=== PATIENT | male | born 1960 | race Caucasian/White ===

== ENCOUNTER → 2020-02-13 | Outpatient (CLI) | payer OTHER ==
--- NOTE | 2020-02-13 14:58 | US ---
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 SIDE PERFORMED: bilateral 1) Color flow is present and patency is documented in the following vessels. No DVT or SVT is noted . EIV- not seen Common Femoral Vein-not seen on left Deep Femoral Vein-not seen on left Femoral Vein Popliteal Vein Proximal Calf Veins Greater Saph Vein-unable to visualize Upper Small Saph Vein -not seen on right 2) There is no venous reflux seen bilateral, limited views. Morbidly obese patient unable to well recline, large panus, unable to see vessels in groin. IMPRESSION: Suboptimal study particularly left lower extremity without ultrasound evidence for acute DVT on images saved. Some vessels not adequately assessed on this study as detailed above.
--- NOTE | 2020-02-14 12:25 | P.ARTDOP ---
Arterial Doppler LOWER EXTREMITY ARTERIAL DOPPLER: DATE OF SERVICE: 02/13/2020 Reason for study: Ulcer right great toe. Doppler waveforms: Multiphasic bilaterally throughout. Pulse volume recording: []. Pressure gradients: None. Ankle-brachial indices: Greater than 1 bilaterally. Toe brachial indices: 0.71 on the right, 0.83 on the left Impression: normal study.
== END | disposition home or self-care (01) ==
LOC: RADUSWWP 13:25
PROVIDERS: ATTEND Thoracic Surgery (Cardiothoracic Vascular Surgery)
DX: L89.892 Pressure ulcer of other site, stage 2 (principal); E11.621 Type 2 diabetes mellitus with foot ulcer
CPT/HCPCS: 93922; 93923; 93970

== ENCOUNTER 2021-12-30 10:54 | Emergency (ER) | payer OTHER ==
[2021-12-30 11:00] LABS: Glucose,Whole Blood 174 mg/dL (70-110)
[2021-12-30 11:24] LABS: Basophils # (A) 0.1 k/uL (0-0.2); Basophils % (A) 1 %; Eosinophils # (A) 0.4 k/uL (0-0.7); Eosinophils % (A) 5 %; HCT 46.4 % (39.0-53.0); HGB 15.6 gm/dL (13.0-17.5); Lymphocytes # (A) 2.2 k/uL (1.0-4.8); Lymphocytes % (A) 23 %; MCH 31.1 pg (25.0-35.0); MCHC 33.6 g/dL (31.0-37.0); MCV 92.5 fL (80.0-100.0); Mean Platelet Volume 8.2; Monocytes # (A) 0.4 k/uL (0-1.0); Monocytes % (A) 4 %; Neutrophils # (A) 5.9 k/uL (1.3-7.7); Neutrophils % (A) 63 %; Platelet Count 281 k/uL (150-450); RBC 5.02 m/uL (4.30-5.90); RDW 12.9 % (11.5-15.5); WBC 9.3 k/uL (3.8-10.6)
[2021-12-30 11:25] VITALS: RESP 18
[2021-12-30 11:40] LABS: ALT 14 U/L (4-49); AST 18 U/L (17-59); African American GFR (CKD) >90 (>60 ml/min/1.73 sqM); Albumin 4.4 g/dL (3.5-5.0); Alkaline Phosphatase 71 U/L (38-126); Anion Gap 8 mmol/L; Blood Urea Nitrogen 16 mg/dL (9-20); Calcium 9.4 mg/dL (8.4-10.2); Carbon Dioxide 28 mmol/L (22-30); Chloride 101 mmol/L (98-107); Glucose 167 mg/dL (74-99); Magnesium 1.4 mg/dL (1.6-2.3); Non-African American GFR(CKD) >90 (>60 ml/min/1.73 sqM); Sodium 137 mmol/L (137-145); Total Bilirubin 0.7 mg/dL (0.2-1.3); Total Protein 7.5 g/dL (6.3-8.2)
--- NOTE | 2021-12-30 11:44 | CT ---
EXAMINATION TYPE: CT brain wo con for TPA CT DLP: 1227.8 mGycm, Automated exposure control for dose reduction was used. DATE OF EXAM: 12/30/2021 11:36 AM COMPARISON: None. CLINICAL INDICATION:Male, 61 years old with history of Neuro deficit, acute, stroke suspected, CODE S TROKE TECHNIQUE: Brain: Multiple axial CT images of the brain were obtained without IV contrast. Coronal and sagittal reformats were reviewed. FINDINGS: Brain: Extra-axial spaces: No abnormal extra-axial fluid collections. Ventricular system: Within normal limits Cerebral parenchyma: No acute intraparenchymal hemorrhage or mass effect. The sifuentes-white junction is well differentiated. Remote right insula infarct. Cerebellum: Unremarkable. Mass effect: No evidence of midline shift. Intracranial vasculature: Atherosclerotic calcifications of the intracranial vessels. Soft tissues: Normal. Calvarium/osseous structures: No depressed skull fracture. Paranasal sinuses and mastoid air cells: Clear Visualized orbits: Orbital contents are intact. IMPRESSION: No acute intracranial process. Remote right insular infarct.
[2021-12-30 11:54] LABS: INR 0.9 (<1.2); Partial Thromboplastin Time 25.6 sec (22.0-30.0); Prothrombin Time 10.4 sec (9.0-12.0)
--- NOTE | 2021-12-30 12:07 | XR ---
EXAMINATION TYPE: XR chest 2V DATE OF EXAM: 12/30/2021 COMPARISON: 07/09/2015 TECHNIQUE: PA and lateral views submitted. HISTORY: Altered mental status FINDINGS: The lungs are clear and there is no pneumothorax, pleural effusion, or focal pneumonia. Arthropathy of the shoulders. Hypertrophic and degenerative changes spine. Atherosclerotic change aorta. Heart s ize normal. No overt failure. IMPRESSION: 1. No acute process.
--- NOTE | 2021-12-30 12:19 | CT ---
EXAMINATION TYPE: CT angio head neck CT DLP: 937.3 mGycm, Automated exposure control for dose reduction was used. DATE OF EXAM: 12/30/2021 12:01 PM COMPARISON: CT head of the same date. CLINICAL INDICATION:Male, 61 years old with history of Neuro deficit, acute, stroke suspected; CODE S TROKE TECHNIQUE: Axially acquired helical CT angiogram of the head and neck was obtained with contrast util izing 65 cc of Isovue-370 administered intravenously. Axial images are supplemented with 3D reconstru ctions which were post-processed at an independent workstation. NASCET criteria used. FINDINGS: CTA HEAD: No evidence of acute intracranial hemorrhage, mass effect, or midline shift. The ventricles, sulci, a nd cisterns are unremarkable. The visualized portions of the internal carotid arteries, middle cerebral arteries, anterior cerebral arteries, and posterior cerebral arteries are patent. The basilar and vertebral arteries are patent. CTA NECK: Right Carotid System: The common carotid artery and external carotid artery are patent. The carotid bifurcation demonstrate s no evidence of hemodynamically significant stenosis. The remaining portions of the internal carotid artery demonstrate normal size without significant narrowing. Left Carotid System: The common carotid artery and external carotid artery are patent. Minimal calcified plaque at the car otid bulb. The carotid bifurcation demonstrates no evidence of hemodynamically significant stenosis. The remaining portions of the internal carotid artery demonstrate normal size without significant toño rowing. Vertebral arteries are patent without evidence hemodynamically significant stenosis. Calcification at the origin of the right vertebral artery. The vertebral arteries are codominant. There is a three-vessel aortic arch. The origins of the great vessels are patent. No evidence of hemo dynamically significant stenosis. IMPRESSION: 1. No evidence of dissection of the cervical internal carotid arteries or vertebral arteries or any e vidence of significant stenosis at the carotid bifurcations. 2. No evidence of high-grade stenosis or intracranial aneurysm.
[2021-12-30 14:26] VITALS: BP 137/92; PULSE 77; TEMP 94.4
--- NOTE | 2021-12-30 14:28 | ED ---
Neuro HPI - General Chief Complaint: Neuro Symptoms/Deficit Stated Complaint: stroke symptoms Time Seen by Provider: 12/30/21 10:54 Source: patient, EMS, RN notes reviewed Mode of arrival: EMS Limitations: no limitations - History of Present Illness Is the patient presenting with stroke symptoms?: Yes Initial Comments: 61-year-old male history of prior stroke with left-sided residual weakness who presents today by EMS with complaints of what appears to be a wake-up stroke. He last was noted to be well about 8 PM last evening. 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 He does have chronic left knee pain he does not believe his left leg was affected. No headache he did also complain however of anterior chest pain. He states currently he has diabetes been having recurrent pain over last 3 days. No fevers chills nausea vomiting sweats or other symptoms - Related Data Home Medications: Home Medications Medication Instructions Recorded Confirmed Aspirin 81 mg PO HS 12/30/21 12/30/21 Atorvastatin [Lipitor] 20 mg PO HS 12/30/21 12/30/21 Clopidogrel [Plavix] 75 mg PO DAILY 12/30/21 12/30/21 Diclofenac Sodium Gel [Voltaren 1 applic TRANSDERM QID 12/30/21 12/30/21 Gel] Insulin Glargine,Hum.rec.anlog 20 units SQ DAILY 12/30/21 12/30/21 [Lantus Solostar Pen] Ipratropium-Albuterol Nebulize 3 ml INHALATION RT-Q6H PRN 12/30/21 12/30/21 [Duoneb 0.5 mg-3 mg/3 ml Soln] amLODIPine [Norvasc] 5 mg PO HS 12/30/21 12/30/21 lisinopriL 40 mg PO DAILY 12/30/21 12/30/21 metFORMIN HCL 1,000 mg PO BID 12/30/21 12/30/21 Allergies/Adverse Reactions: Allergies Allergy/AdvReac Type Severity Reaction Status Date / Time No Known Allergies Allergy Verified 12/30/21 11:06 Review of Systems ROS Statement: Those systems with pertinent positive or pertinent negative responses have been documented in the HPI. ROS Other: All systems not noted in ROS Statement are negative. General Exam Limitations: no limitations Stroke MDM - Lab Data Result diagrams: 12/30/21 11:08 12/30/21 11:08 Lab Results 12/30/21 12/30/21 12/30/21 Range/Units 10:58 11:08 11:08 WBC 9.3 (3.8-10.6) k/uL RBC 5.02 (4.30-5.90) m/uL Hgb 15.6 (13.0-17.5) gm/dL Hct 46.4 (39.0-53.0) % MCV 92.5 (80.0-100.0) fL MCH 31.1 (25.0-35.0) pg MCHC 33.6 (31.0-37.0) g/dL RDW 12.9 (11.5-15.5) % Plt Count 281 (150-450) k/uL MPV 8.2 Neutrophils % 63 % Lymphocytes % 23 % Monocytes % 4 % Eosinophils % 5 % Basophils % 1 % Neutrophils # 5.9 (1.3-7.7) k/uL Lymphocytes # 2.2 (1.0-4.8) k/uL Monocytes # 0.4 (0-1.0) k/uL Eosinophils # 0.4 (0-0.7) k/uL Basophils # 0.1 (0-0.2) k/uL PT 10.4 (9.0-12.0) sec INR 0.9 (<1.2) APTT 25.6 (22.0-30.0) sec Sodium (137-145) mmol/L Potassium (3.5-5.1) mmol/L Chloride (98-107) mmol/L Carbon Dioxide (22-30) mmol/L Anion Gap mmol/L BUN (9-20) mg/dL Creatinine (0.66-1.25) mg/dL Est GFR (CKD-EPI)AfAm (>60 ml/min/1.73 sqM) Est GFR (CKD-EPI)NonAf (>60 ml/min/1.73 sqM) Glucose (74-99) mg/dL POC Glucose (mg/dL) 174 H (70-110) mg/dL POC Glu Fixed Assets Accountant ID Sofya Dietz Calcium (8.4-10.2) mg/dL Magnesium (1.6-2.3) mg/dL Total Bilirubin (0.2-1.3) mg/dL AST (17-59) U/L ALT (4-49) U/L Alkaline Phosphatase (38-126) U/L Troponin I (0.000-0.034) ng/mL Total Protein (6.3-8.2) g/dL Albumin (3.5-5.0) g/dL 12/30/21 12/30/21 Range/Units 11:08 11:08 WBC (3.8-10.6) k/uL RBC (4.30-5.90) m/uL Hgb (13.0-17.5) gm/dL Hct (39.0-53.0) % MCV (80.0-100.0) fL MCH (25.0-35.0) pg MCHC (31.0-37.0) g/dL RDW (11.5-15.5) % Plt Count (150-450) k/uL MPV Neutrophils % % Lymphocytes % % Monocytes % % Eosinophils % % Basophils % % Neutrophils # (1.3-7.7) k/uL Lymphocytes # (1.0-4.8) k/uL Monocytes # (0-1.0) k/uL Eosinophils # (0-0.7) k/uL Basophils # (0-0.2) k/uL PT (9.0-12.0) sec INR (<1.2) APTT (22.0-30.0) sec Sodium 137 (137-145) mmol/L Potassium 4.0 (3.5-5.1) mmol/L Chloride 101 (98-107) mmol/L Carbon Dioxide 28 (22-30) mmol/L Anion Gap 8 mmol/L BUN 16 (9-20) mg/dL Creatinine 0.86 (0.66-1.25) mg/dL Est GFR (CKD-EPI)AfAm >90 (>60 ml/min/1.73 sqM) Est GFR (CKD-EPI)NonAf >90 (>60 ml/min/1.73 sqM) Glucose 167 H (74-99) mg/dL POC Glucose (mg/dL) (70-110) mg/dL POC Glu Fixed Assets Accountant ID Calcium 9.4 (8.4-10.2) mg/dL Magnesium 1.4 L (1.6-2.3) mg/dL Total Bilirubin 0.7 (0.2-1.3) mg/dL AST 18 (17-59) U/L ALT 14 (4-49) U/L Alkaline Phosphatase 71 (38-126) U/L Troponin I <0.012 (0.000-0.034) ng/mL Total Protein 7.5 (6.3-8.2) g/dL Albumin 4.4 (3.5-5.0) g/dL - NIH Stroke Scale 1a. Level of Consciousness: (0) alert 1b. LOC Questions: (0) answers correctly 1c. LOC Commands: (0) performs tasks correctly 2. Best Gaze: (0) normal 3. Visual: (0) no visual loss 4. Facial Palsy: (1) minor paralysis 5a. Motor Arm Left: (0) no drift 5b. Motor Arm Right: (0) no drift 6a. Motor Leg Left: (0) no drift 6b. Motor Leg Right: (0) no drift 7. Limb Ataxia: (0) absent 8. Sensory: (0) normal 9. Best Language: (0) no aphasia 10. Dysarthria: (0) normal 11. Extinction/Inattention: (0) no abnormality - Medical Decision Making Patient was a code stroke at did discuss the case with Dr. petersen. Patient was to be a medical admission and management. CT was negative for acute processes.. Patient was to be admitted with neurological consultation. Patient had a long discussion he does not want to stay in hospital he did have a long discussion regarding the risks and benefits with respect to his chest pain and his evidence of TIA. Patient demonstrates decision making capacity that is adequate. He is willing to take the responsibility we did discuss return parameters. He will follow-up with his doctor he has seen Dr. Montoya also in the past - Radiology Data Radiology results: report reviewed, image reviewed - EKG Data -: EKG Interpreted by Me EKG shows normal: sinus rhythm (Sinus rhythm 82. Interval 172 QRS duration 125 daily since QTC 360/406 moderate interventricular conduction delay no acute ST-T wave changes seen) Past Medical History Past Medical History: CVA/TIA Past Surgical History: Unable to Obtain Smoking Status: Former smoker Past Alcohol Use History: None Reported Past Drug Use History: Marijuana Course Vital Signs 12/30/21 12/30/21 12/30/21 11:01 11:24 11:44 Temperature 98.6 F Pulse Rate 79 89 83 Respiratory 16 18 18 Rate Blood Pressure 207/113 155/106 116/84 O2 Sat by Pulse 97 97 98 Oximetry 12/30/21 12/30/21 12:05 14:25 Temperature 94.4 F L Pulse Rate 88 77 Respiratory 18 18 Rate Blood Pressure 128/78 137/92 O2 Sat by Pulse 98 95 Oximetry - Reevaluation(s) Reevaluation #1: 12/30/21 14:31 Reevaluation the patient no further chest pain he states he is improving with respect to his investment professional strength is facial movement. And numbness. Critical Care Time Critical Care Time: Yes Total Critical Care Time: 39 Disposition Clinical Impression: Transient cerebral ischemia, Chest pain Disposition: Left Against Medical Advice Condition: Stable Referrals: Pamela Abbasi MD [Primary Care Provider] - 1-2 days Decision Date: 12/30/21 Decision Time: 14:00
== END 2021-12-30 18:40 | disposition left against medical advice (07) ==
LOC: EC 10:54
DX: G45.9 Transient cerebral ischemic attack, unspecified (principal); R07.9 Chest pain, unspecified; Z86.73 Personal history of transient ischemic attack (TIA), and cerebral infarction without residual deficits; Z87.891 Personal history of nicotine dependence; F12.90 Cannabis use, unspecified, uncomplicated; Z79.82 Long term (current) use of aspirin; Z79.899 Other long term (current) drug therapy; Z53.29 Procedure and treatment not carried out because of patient's decision for other reasons
CPT/HCPCS: 36415; 93005; 80053; 83735; 84484; 85025; 85610; 85730; 71046; 70496; 70450; 70498; 99291; Q9967

== ENCOUNTER 2022-04-15 10:23 | Emergency (ER) | payer OTHER ==
[2022-04-15 10:28] VITALS: PULSE 69; RESP 18; TEMP 97.5
[2022-04-15] MEDS ORDERED: MORPHINE SULFATE 4 MG/ML SYRINGE IM STA (10:40)
--- NOTE | 2022-04-15 10:52 | ED ---
Fall HPI - General Chief Complaint: Fall Stated Complaint: Fall Time Seen by Provider: 04/15/22 10:31 Source: patient Mode of arrival: EMS - History of Present Illness Initial Comments: Patient is a pleasant 62-year-old male presenting to the emergency room via EMS after attempting to step on the curb and having his left knee buckled underneath him causing him to fall. He reports landing on the left side of his body including his left knee left elbow, left hand and left side of his head. He is complaining of pain in his left knee and left elbow along with some left sided generalized rib pain. He is complaining of a mild headache and some dizziness without any nausea, vomiting, lethargy, altered mental status, focal neurological deficits, weakness, or loss of consciousness prior to or after the fall. He does report having significant arthritis in his left knee. In addition to his previous history his past medical history significant for CVA with mild left sided weakness, diabetes, hypertension, and hyperlipidemia. He is on Plavix and a baby aspirin for his stroke history. - Related Data Home Medications Medication Instructions Recorded Confirmed Aspirin 81 mg PO HS 12/30/21 12/30/21 Atorvastatin [Lipitor] 20 mg PO HS 12/30/21 12/30/21 Clopidogrel [Plavix] 75 mg PO DAILY 12/30/21 12/30/21 Diclofenac Sodium Gel [Voltaren 1 applic TRANSDERM QID 12/30/21 12/30/21 Gel] Insulin Glargine,Hum.rec.anlog 20 units SQ DAILY 12/30/21 12/30/21 [Lantus Solostar Pen] Ipratropium-Albuterol Nebulize 3 ml INHALATION RT-Q6H PRN 12/30/21 12/30/21 [Duoneb 0.5 mg-3 mg/3 ml Soln] amLODIPine [Norvasc] 5 mg PO HS 12/30/21 12/30/21 lisinopriL 40 mg PO DAILY 12/30/21 12/30/21 metFORMIN HCL 1,000 mg PO BID 12/30/21 12/30/21 Allergies Allergy/AdvReac Type Severity Reaction Status Date / Time No Known Allergies Allergy Verified 04/15/22 10:28 Review of Systems ROS Statement: Those systems with pertinent positive or pertinent negative responses have been documented in the HPI. ROS Other: All systems not noted in ROS Statement are negative. Past Medical History Past Medical History: CVA/TIA, Diabetes Mellitus, Hyperlipidemia, Hypertension, Osteoarthritis (OA) Past Surgical History: Unable to Obtain Smoking Status: Former smoker Past Alcohol Use History: None Reported Past Drug Use History: Marijuana General Exam Limitations: no limitations General appearance: alert, in no apparent distress Head exam: Present: normocephalic, normal inspection Eye exam: Present: normal appearance, PERRL. Absent: scleral icterus, conjunctival injection ENT exam: Present: normal exam, mucous membranes moist Neck exam: Present: normal inspection, full ROM Respiratory exam: Absent: respiratory distress, accessory muscle use Cardiovascular Exam: Present: regular rate GI/Abdominal exam: Present: soft, normal bowel sounds. Absent: distended, tenderness, guarding, rebound, rigid Left Elbow exam: Present: full ROM, tenderness, abrasion. Absent: swelling Hand Wrist exam: Present: full ROM, tenderness, abrasion. Absent: swelling Vascular: Absent: vascular compromise Left Knee exam: Present: full ROM, tenderness, swelling, abrasion Neurovascular tendon exam: Present: no vascular compromise Back exam: Present: normal inspection Neurological exam: Present: alert, oriented X3, other (Mild chronic left-sided weakness) Psychiatric exam: Present: normal affect, normal mood Skin exam: Present: abrasion (Left knee, left elbow and left hand palmar aspect) Course Vital Signs 04/15/22 04/15/22 10:25 10:30 Temperature 97.5 F L Pulse Rate 69 Respiratory 18 Rate Blood Pressure 185/107 159/97 O2 Sat by Pulse 96 Oximetry Medical Decision Making - Medical Decision Making 61-year-old male presenting to the emergency room after a trip and fall like event on aspirin and Plavix without any loss of consciousness or new neurological deficits. Pain and abrasion to both upper and lower left extremities and trunk. Will obtain CT of the brain and cervical spine along with x-ray of left knee, left elbow, chest and ribs. No indication for laboratory studies at this time. Patient denies analgesic need and is resting comfortably. CT of the brain and cervical spine image read by me with no evidence of intracranial bleed. X-ray of left knee, left elbow and left chest all without acute fracture or dislocation. Chest x-ray without acute cardiopulmonary process. Abrasions to left elbow, left hand and left knee cleansed without any evidence of foreign body. Dressing applied to all abrasions. No indication for further diagnostic imaging or laboratory studies. Will discharge patient home in stable condition with follow-up with his primary care provider. Encouraged follow-up precautions and continued use of cane. Case discussed with Dr. Beltran. - Radiology Data Radiology results: report reviewed, image reviewed CT of the brain and cervical spine without contrast impression 1. Age-related atrophic changes since chronic small vessel ischemia without acute intracranial process. No bleed or mass effect. No evidence of acute fracture or subluxation of the cervical spine. X-ray ribs left with PA chest impression chronic changes without acute pulmonary process. No acute displaced left sided rib fractures. X-ray left knee shows no acute fracture or dislocation of left knee on overlying soft tissue is unremarkable. X-ray left elbow impression no acute fracture or dislocation of the elbow, overlying soft tissue appears unremarkable. Disposition Clinical Impression: Fall Disposition: HOME SELF-CARE Condition: Stable Instructions (If sedation given, give patient instructions): Fall Prevention (ED) Additional Instructions: Please utilize [id number] Tylenol as needed for pain. Please continue to utilize cane regularly while ambulating. Change positions slowly. Please follow- up with your primary care provider. Please return to the Emergency Department if symptoms worsen or any other concerns. Is patient prescribed a controlled substance at d/c from ED?: No Referrals: Pamela Abbasi MD [Primary Care Provider] - 1-2 days Time of Disposition: 12:01
--- NOTE | 2022-04-15 11:13 | CT ---
EXAMINATION TYPE: CT brain kingsley aleman con DATE OF EXAM: 04/15/2022 COMPARISON: 12/30/21 HISTORY: fall CT DLP: 1953.[address] of the brain was performed. The ventricles, basal cisterns and sulci overlying the cerebral convexities demonstrate mild enlargem ent. There is no evidence for intracranial hemorrhage or sulcal effacement. There is decreased attenuatio n about the periventricular white matter and deep white matter of both cerebral hemispheres, compatib le with chronic small vessel ischemia. No mass effects are seen. If symptoms persist consider MRI. Osseous calvarium is intact. IMPRESSION: 1. Age related atrophic and chronic small vessel ischemic change without acute intracranial process seen at this time. CT Cervical Spine: Unenhanced CT of the cervical spine was performed with bone and soft tissue window settings submitted . Coronal and sagittal reconstruction is obtained. There is normal alignment and prevertebral soft tissues. No evidence for acute cervical fracture . Scattered degenerative disc disease and spondylosis. Biapical scarring. IMPRESSION: 1. No evidence for acute fracture or subluxation of the cervical spine.
--- NOTE | 2022-04-15 11:41 | XR ---
EXAMINATION TYPE: XR knee complete LT DATE OF EXAM: 04/15/2022 CLINICAL HISTORY: Fall injury with pain TECHNIQUE: Three views of the left knee are obtained. COMPARISON: None. FINDINGS: Genu varum positioning. No acute displaced fracture is seen. Moderate to severe narrowing a nd spurring medial tibiofemoral and patellofemoral compartments. Overlying soft tissue is unremarkabl e. IMPRESSION: There is no acute fracture or dislocation in the left knee.
--- NOTE | 2022-04-15 11:41 | XR ---
EXAMINATION TYPE: XR elbow complete LT DATE OF EXAM: 04/15/2022 CLINICAL HISTORY: pain TECHNIQUE: Frontal, lateral and oblique images of the left elbow are obtained. COMPARISON: None. FINDINGS: There is no acute fracture/dislocation evident of the elbow. No abnormal fat pad signs ar e seen. The overlying soft tissue appears unremarkable. IMPRESSION: There is no acute fracture or dislocation of the elbow. ICD 10 NO FRACTURE, INITIAL EVALUATION
--- NOTE | 2022-04-15 11:45 | XR ---
EXAMINATION TYPE: XR ribs LT w pa chest xray DATE OF EXAM: 04/15/2022 CLINICAL HISTORY: Fall injury with pain TECHNIQUE: Single frontal view of the chest is obtained. A frontal and oblique images of the left-kia ed ribs. COMPARISON: Chest x-ray December 30, 2021 FINDINGS: There is mild chronic parenchymal change without suspicious focal air space opacity, pleur al effusion, or pneumothorax seen. The cardiac silhouette size is stable and upper limits of normal. The osseous structures are intact. Dedicated images of the left-sided ribs show no acute displaced fractures. Overlying soft tissue is u nremarkable. IMPRESSION: 1. Chronic changes without acute pulmonary process. 2. No acute displaced right-sided rib fractures.
[2022-04-15 12:40] VITALS: BP 159/97
== END 2022-04-15 12:44 | disposition home or self-care (01) ==
LOC: EC 10:23 → SUPCPDRO 10:23 → EC 12:44
DX: M25.562 Pain in left knee (principal); G45.9 Transient cerebral ischemic attack, unspecified; E11.9 Type 2 diabetes mellitus without complications; E78.5 Hyperlipidemia, unspecified; I10 Essential (primary) hypertension; M19.90 Unspecified osteoarthritis, unspecified site; Z87.891 Personal history of nicotine dependence; F12.90 Cannabis use, unspecified, uncomplicated; Z79.02 Long term (current) use of antithrombotics/antiplatelets; Z79.84 Long term (current) use of oral hypoglycemic drugs; Z79.83 Long term (current) use of bisphosphonates; Z79.01 Long term (current) use of anticoagulants; Z79.899 Other long term (current) drug therapy; W01.0XXA Fall on same level from slipping, tripping and stumbling without subsequent striking against object, initial encounter
CPT/HCPCS: 71101; 73080; 73562; 72125; 70450; 99285; 96372; J2270

== ENCOUNTER 2022-11-03 15:45 | Emergency (ER) | payer OTHER ==
[2022-11-03] MEDS ORDERED: DIPH,PERTUS(ACELL)TETVAC-LF 0.5 ML VIAL IM ONE (16:45)
[2022-11-03] MEDS ORDERED: LIDOCAINE 1% INJ 10MG/ML (30 ML VIAL-PF) SQ ONE (17:20)
--- NOTE | 2022-11-03 17:35 | ED ---
Wound/Laceration HPI - General Chief Complaint: Wound/Laceration Stated Complaint: Rt hand injury Time Seen by Provider: 11/03/22 16:31 Source: patient, RN notes reviewed Mode of arrival: ambulatory Limitations: no limitations - History of Present Illness Initial Comments: This is a 62-year-old male who presents to the emergency department for a laceration to the left pinky finger. Patient states that he cut this on a piece of scrap sheet metal earlier today. Unsure when his last tetanus vaccine is. This is painful, and the patient states that it bled for a long period of time, however he is not on any blood thinners. Denies any fevers, chills, sore throat, cough, dyspnea, chest pain, palpitations, abdominal pain, nausea, vomiting, diarrhea, back pain, or headaches. - Related Data Home Medications Medication Instructions Recorded Confirmed Aspirin 81 mg PO HS 12/30/21 12/30/21 Atorvastatin [Lipitor] 20 mg PO HS 12/30/21 12/30/21 Clopidogrel [Plavix] 75 mg PO DAILY 12/30/21 12/30/21 Diclofenac Sodium Gel [Voltaren 1 applic TRANSDERM QID 12/30/21 12/30/21 Gel] Insulin Glargine,Hum.rec.anlog 20 units SQ DAILY 12/30/21 12/30/21 [Lantus Solostar Pen] Ipratropium-Albuterol Nebulize 3 ml INHALATION RT-Q6H PRN 12/30/21 12/30/21 [Duoneb 0.5 mg-3 mg/3 ml Soln] amLODIPine [Norvasc] 5 mg PO HS 12/30/21 12/30/21 lisinopriL 40 mg PO DAILY 12/30/21 12/30/21 metFORMIN HCL 1,000 mg PO BID 12/30/21 12/30/21 Allergies Allergy/AdvReac Type Severity Reaction Status Date / Time No Known Allergies Allergy Verified 11/03/22 16:18 Review of Systems ROS Statement: Those systems with pertinent positive or pertinent negative responses have been documented in the HPI. ROS Other: All systems not noted in ROS Statement are negative. Past Medical History Past Medical History: CVA/TIA, Diabetes Mellitus, Hyperlipidemia, Hypertension, Osteoarthritis (OA) History of Any Multi-Drug Resistant Organisms: None Reported Past Surgical History: Unable to Obtain Past Psychological History: No Psychological Hx Reported Smoking Status: Former smoker Past Alcohol Use History: None Reported Past Drug Use History: Marijuana General Exam Limitations: no limitations General appearance: alert, in no apparent distress Head exam: Present: atraumatic, normocephalic, normal inspection Respiratory exam: Present: normal lung sounds bilaterally. Absent: respiratory distress, wheezes, rales, rhonchi, stridor Cardiovascular Exam: Present: regular rate, normal rhythm, normal heart sounds. Absent: systolic murmur, diastolic murmur, rubs, gallop, clicks Neurological exam: Present: alert, oriented X3, CN II-XII intact Psychiatric exam: Present: normal affect, normal mood Skin exam: Present: other (3 cm laceration to the lateral aspect of the left pinky finger. Active bleeding. Full passive range of motion.) Course Vital Signs 11/03/22 11/03/22 16:15 18:18 Temperature 98.1 F 98.2 F Pulse Rate 109 H 72 Respiratory 18 20 Rate Blood Pressure 168/93 142/76 O2 Sat by Pulse 95 99 Oximetry Procedures - Laceration Laceration #1 Consent Obtained: verbal consent Indication: laceration Site: other (left pinky finger) Size (cm): 3 Description: linear Depth: simple, single layer Anesthetic Used: lidocaine 1% Anesthesia Technique: local infiltration Amount (mls): 3 Pre-repair: wound explored, irrigated extensively Type of Sutures: nylon Size of Sutures: 5-0 Number of Sutures: 3 Technique: simple, interrupted Medical Decision Making - Medical Decision Making This is a 62-year-old male who presents to the emergency department for a laceration of the left pinky finger. Was pt. sent in by a medical professional or institution? @ -No Did you speak to anyone other than the patient for history? @ -No Did you review nursing and triage notes? @ -Yes, and I agree, it is accurate with regards to the patient's symptoms. Were old charts reviewed? @ -No Differential Diagnosis? @ -Not applicable EKG interpreted by me (3pts min.)? @ -Not obtained X-rays interpreted by me (1pt min.)? @ -Not obtained CT interpreted by me (1pt min.)? @ -Not obtained U/S interpreted by me (1pt. min.)? @ -Not obtained What testing was considered but not performed? (CT, X-rays, U/S, labs)? Why? @ -None What meds were considered but not given? Why? @ -None Did you discuss the management of the patient with other professionals? @ -No Did you reconcile home meds? @ -No Was smoking cessation discussed for >3mins.? @ -No Was critical care preformed (if so, how long)? @ -No Were there social determinants of health that impacted care today? How? (Homelessness, low income, unemployed, alcoholism, drug addiction, transportation, low edu. Level, literacy, decrease access to med. care, alf, rehab)? @ -No Was there de-escalation of care discussed even if they declined? (Discuss DNR or withdrawal of care, Hospice)? @ -No What co-morbidities impacted this encounter? (DM, HTN, Smoking, COPD, CAD, Cancer, CVA, Hep., AIDS, mental health diagnosis, sleep apnea, morbid obesity)? @ -None Was patient admitted / discharged? @ -Discharged. Patient's tetanus status was updated. His hand was soaked in sterile water to thoroughly cleanse the wound and remove excess dried blood from the hand. 3 sutures were placed. He is instructed to return in 5-7 days for suture removal. Otherwise advised ibuprofen and Tylenol as needed for pain relief. Undiagnosed new problem with uncertain prognosis? @ -None Drug Therapy requiring intensive monitoring for toxicity (Heparin, Nitro, In sulin, Cardizem)? @ -None Were any procedures done? @ -Laceration repair with sutures. Diagnosis/symptom? @ -Laceration Acute, or Chronic, or Acute on Chronic? @ -Acute Uncomplicated (without systemic symptoms) or Complicated (systemic symptoms)? @ -Uncomplicated Side effects of treatment? @ -None Exacerbation, Progression, or Severe Exacerbation] @ -Not applicable Poses a threat to life or bodily function? @ -No Return precautions reviewed in depth, the patient is instructed to return to the emergency department with any new, worsening, or concerning symptoms. Patient verbalized understanding. This case was discussed in detail with the attending ED physician, Dr. Kapoor. Presentation, findings, and treatment plan discussed in detail as well. Disposition Clinical Impression: Laceration Disposition: HOME SELF-CARE Instructions (If sedation given, give patient instructions): Care For Your Stitches (ED) Additional Instructions: Return to the emergency department with any new, worsening, or concerning symptoms and in 5-7 days for removal of the stitches. Alternate with ibuprofen and Tylenol as needed for pain relief. Follow up with your primary care provider in 1-2 days. Is patient prescribed a controlled substance at d/c from ED?: No Referrals: Pamela Abbasi MD [Primary Care Provider] - 1-2 days
[2022-11-03 18:20] VITALS: BP 142/76; PULSE 72; RESP 20; TEMP 98.2
== END 2022-11-03 18:20 | disposition home or self-care (01) ==
LOC: EC 15:45
DX: S61.217A Laceration without foreign body of left little finger without damage to nail, initial encounter (principal); E11.9 Type 2 diabetes mellitus without complications; I10 Essential (primary) hypertension; E78.5 Hyperlipidemia, unspecified; F12.90 Cannabis use, unspecified, uncomplicated; Z23 Encounter for immunization; Z79.4 Long term (current) use of insulin; Z79.84 Long term (current) use of oral hypoglycemic drugs; Z79.82 Long term (current) use of aspirin; Z79.02 Long term (current) use of antithrombotics/antiplatelets; Z79.899 Other long term (current) drug therapy; Z87.891 Personal history of nicotine dependence; Z86.73 Personal history of transient ischemic attack (TIA), and cerebral infarction without residual deficits; W26.8XXA Contact with other sharp object(s), not elsewhere classified, initial encounter
CPT/HCPCS: 90715; 99282; 90471; 12002; J2001